=== PATIENT | male | born 1945 | race Caucasian/White ===

== ENCOUNTER 2017-04-02 05:56 | Inpatient (IN) | payer OTHER ==
[2017-03-06 10:09] VITALS: BMI 34.0
--- NOTE | 2017-03-06 10:40 | PAT Medication Instructions ---
Service Date Mar 06, 2017. Current Home Medication List Aspirin (Aspirin Ec), 81 MG PO QAM Glimepiride (Glimepiride), 1 TAB PO QAM Lisinopril (Prinivil), 20 MG PO QAM Metformin Hcl (Glucophage), 500 MG PO BID Naproxen (Aleve), 2 TAB PO UD PRN for PRN Rosuvastatin Calcium (Crestor), 5 MG PO QPM Medication Instructions For Your Scheduled Surgery - Check with surgeon for instructions: Naproxen (Aleve), 2 TAB PO UD PRN for PRN - Hold the following medications 48 hours prior to surgery: Metformin Hcl (Glucophage), 500 MG PO BID - Hold the following medications the morning of surgery: Glimepiride (Glimepiride), 1 TAB PO QAM Lisinopril (Prinivil), 20 MG PO QAM - Take the following medications the morning of surgery with a sip of water: Aspirin (Aspirin Ec), 81 MG PO QAM (okay to continue per surgeon) - Take the following medications as scheduled the night before surgery: Rosuvastatin Calcium (Crestor), 5 MG PO QPM If you have any questions please call us at [phone] or [phone] or [phone]
--- NOTE | 2017-03-06 11:21 | DIAGNOSTIC IMAGING REPORT ---
CHEST 2 VIEWS ROUTINE HISTORY: Preop. COMPARISON: None. FINDINGS: The lungs are clear. The heart is normal in size. No pleural effusions. No pneumothorax. Old, healed left rib fractures. IMPRESSION: No acute process. Electronically signed by: Jhonathan Duran M.D. 03/06/2017 11:19 AM Dictated Date/Time: 03/06/2017 11:18 AM
[2017-03-06 12:00] LABS: BASO % 0.3 %; BASO ABS # 0.02 K/uL (0-0.2); EOS % 1.3 %; EOS ABS # 0.08 K/uL (0-0.5); HEMATOCRIT 45.2 % (42-52); HEMOGLOBIN 15.2 g/dL (14.0-18.0); IG# 0.02 K/uL (0.00-0.02); LYMPH % 26.6 %; LYMPH ABS # 1.61 K/uL (1.2-3.4); MEAN CELL VOLUME 87.9 fL (80-100); MEAN CORPUSCULAR HEMOGLOBIN 29.6 pg (25-34); MEAN CORPUSCULAR HGB CONC 33.6 g/dl (32-36); MEAN PLATELET VOLUME 11.4 fL (7.4-10.4); MONO % 5.6 %; MONO ABS # 0.34 K/uL (0.11-0.59); NEUT % 65.9 %; NEUT ABS # 3.98 K/uL (1.4-6.5); PLATELET COUNT 208 K/uL (130-400); RED CELL DISTRIBUTION WIDTH CV 13.2 % (11.5-14.5); RED CELL DISTRIBUTION WIDTH SD 42.5 fL (36.4-46.3); WHITE BLOOD COUNT 6.05 K/uL (4.8-10.8)
[2017-03-06 12:17] LABS: CALCIUM 8.9 mg/dl (8.5-10.1); CREATININE 1.25 mg/dl (0.60-1.40); POTASSIUM 4.6 mmol/L (3.5-5.1)
[2017-04-02] VITALS (9 sets, daily range): BP systolic 127–168; BP diastolic 69–93; PULSE 88–102; TEMP 36.6–36.8; O2SAT 93–96; Ht 172.7 cm; Wt 101.2 kg
[~2017-04-02] VITALS: Ht 172.7 cm; Wt 101.2 kg
[~2017-04-02 05:56] MED LIST: AMR2 PO; ASPI81TA28 PO; CRS/10 PO; GLC/500 PO; LISI20TA3 PO; NAPR1TAB9 PO
[2017-04-02] MEDS ORDERED: LACTATED RINGER'S 1000ML 1,000 ML IV SCH (06:00)
[2017-04-02] MEDS ORDERED: CEFAZOLIN 2000MG IV PUSH 10 ML IV SCH (06:00)
[2017-04-02] MEDS ORDERED: FENTANYL CITRATE INJ 50 MCG/1 ML 2 ML VIAL ONE ×5 (06:36→10:12)
[2017-04-02] MEDS ORDERED: MIDAZOLAM HCL 1 MG/ML 2ML VIAL ONE (06:36)
[2017-04-02] MEDS ORDERED: BACITRACIN 50000 UNIT VIAL ONE (06:53)
[2017-04-02] MEDS ORDERED: BUPIVACAINE/EPINEPHRINE 0.25% 1:200,000 30 ML VIAL ONE (06:54)
[2017-04-02] MEDS ORDERED: ALBUMIN HUMAN 5% 12.5 GM/250 ML VIAL IV ONE (07:03)
--- NOTE | 2017-04-02 07:40 | History & Physical Bridge Note ---
H&P Re-Evaluation Bridge Note: I have examined the patient, reviewed the History & Physical and in the interval since the performance of the History & Physical I have noted the following changes of clinical significance: No changes noted
--- NOTE | 2017-04-02 07:41 | History and Physical ---
History & Physical Date Apr 02, 2017. Chief Complaint Back and leg pain History of Present Illness The patient is a 71 year old male with complaints of back and leg pain Additional History Hepatic Disease: No Endocrine Disorder: No Kidney Disease: No Hypertension: Yes Heart Disease: No Bleeding Tendencies: No Infectious Diseases: No Allergies Coded Allergies: No Known Allergies (Unverified , 04/02/17) Home Medications Scheduled Aspirin (Aspirin Ec), 81 MG PO QAM Glimepiride (Glimepiride), 1 TAB PO QAM Lisinopril (Prinivil), 20 MG PO QAM Metformin Hcl (Glucophage), 500 MG PO BID Rosuvastatin Calcium (Crestor), 5 MG PO QPM Scheduled PRN Naproxen (Aleve), 2 TAB PO UD PRN for PRN Physical Examination Skin: warm/dry, no rash Eyes: normal inspection, EOMI, sclerae normal ENT: normal ENT inspection, pharynx normal Head: normocephalic, atraumatic Neck: supple, no adenopathy, trachea midline Respiratory/Chest: lungs clear, normal breath sounds, no respiratory distress Cardiovascular: regular rate, rhythm, no edema, no murmur Abdomen / GI: normal bowel sounds, non tender Back: normal inspection Extremities: normal inspection, normal range of motion Neurologic/Psych: no motor/sensory deficits, alert, normal reflexes, oriented x 3 Diagnosis Lumbar spinal stenosis Plan of Treatment L3 to S1 decompression fusion
[2017-04-02] MEDS ORDERED: HYDROmorphone INJ 2 MG/ML SYR/VIAL ONE ×3 (08:15→10:38)
[2017-04-02] MEDS ORDERED: PHENYLEPHRINE 100MCG/ML 5ML SYR ONE ×2 (09:41→10:12)
[2017-04-02] MEDS ORDERED: PROPOFOL IV EMULSION 10 MG/ML 20 ML VIAL IV ONE (10:12)
[2017-04-02] MEDS ORDERED: DEXAMETHASONE SOD INJ 4 MG/ML VIAL ONE (10:12)
[2017-04-02] MEDS ORDERED: EpHEDrine SULFATE 50MG/5ML SYR ONE (10:12)
[2017-04-02] MEDS ORDERED: LIDOCAINE HCL 2% 2 ML VIAL (20MG/ML) ONE (10:12)
[2017-04-02] MEDS ORDERED: FLOSEAL HEMOSTATIC MATRIX 10ML TOP ONE (10:15)
--- NOTE | 2017-04-02 10:30 | DIAGNOSTIC IMAGING REPORT ---
LUMBAR SPINE 2 OR 3 VIEW CLINICAL HISTORY: L3-S1 DECOMPRESSION/FUSION COMPARISON STUDY: No previous studies for comparison. Fluoroscopy time: 24.5 seconds. FINDINGS: 3 fluoroscopic images demonstrate an L4-L5 discectomy with interbody spacer placement. There is a posterior decompression at the L4 and L5 levels. There are bilateral pedicle screws at the L3, L4, L5 and S1 levels. IMPRESSION: Expected findings following L4-L5 discectomy, posterior decompression and L3-S1 bilateral pedicle screw fusion. Electronically signed by: Philip Saunders M.D. 04/02/2017 10:29 AM Dictated Date/Time: 04/02/2017 10:28 AM
[2017-04-02] MEDS ORDERED: GLYCOPYRROLATE INJ 0.2 MG/ML VIAL ONE (10:43)
[2017-04-02] MEDS ORDERED: NEOSTIGMINE METHYLSULFATE 1 MG/ML 10ML VIAL ONE (10:43)
[2017-04-02] MEDS ORDERED: KETOROLAC TROMETHAMINE 30 MG/ML VIAL ONE (10:43)
[2017-04-02] MEDS ORDERED: ESMOLOL HCL 10 MG/ML 10 ML VIAL ONE (10:43)
[2017-04-02] MEDS ORDERED: PHARMACY GLYCEMIC MGMT CONSULT PRN (10:44)
[2017-04-02] MEDS ORDERED: SODIUM CHLORIDE 0.9% 1000ML 1,000 ML IV SCH (10:44)
--- NOTE | 2017-04-02 10:44 | [facility] Operative Report ---
Operative Report Operative Date Apr 02, 2017. Pre-Operative Diagnosis Lumbar spinal stenosis Post-Operative Diagnosis Lumbar spinal stenosis Procedure(s) Performed #1 lumbar decompression medial facetectomy foraminotomies L3 4 L4 5 L5-S1. #2 posterior spinal fusion L3 4 L4 5 L5-S1. #3 placement posterior segmental instrumentation L3 4 L4 5 L5-S1. #4 interbody fusion L4 5. #5 placement peek cage 15 x 26 mm at L4 5. 6 placement locally harvested morcellized autograft and posterior gutters. #7 placement infuse collagen sponge about mask graft and posterior gutters and ostial amp in the interbody space. Surgeon Dr. Gunner Mccann Carding Machine Operator Surgeon(s) None Estimated Blood Loss 575ml Findings Severe spinal stenosis Specimens None per surgeon Description of Procedure Patient was met with preoperatively case discussed all questions addressed. After informed consent obtained she was taken to the operative suite underwent intubation placed in a prone position the Reg table on top Travis frame. All bony prominences were well-padded eyes inspected to ensure no external pressure placed upon them. This point the lumbar spine was prepped and draped in the normal sterile fashion. Sharp dissection with the assistance of Bovie cautery was performed onto an exposing the lamina and transverse processes of L3 L4-L5 and sacral alar bilaterally. From a caudal cephalad fashion a complete laminectomy of L5 L4 and L3 was performed addressing severe lateral recess and foraminal stenosis. Pedicle screws are then placed in L3 L4-L5 and S1 levels bilaterally with assistance of fluoroscopy and the probably size yara placed. Through a transforaminal approach on the right a complete discectomy of L4 5 was performed and plate created to subcortical bleeding bone and a 15 x 26 mm peek cage filled with ostial amp bone graft tapped in position. The rods were then locked and final position bilaterally. Transverse processes of L3 L4- L5 and the sacral alar were burred to subcortical bleeding bone. Infuse collagen sponge mask graft locally harvested morcellized autograft was placed in the posterior gutters. 15 round MIKE drain inserted. Incision was then closed with 1 Vicryl in the fascia 2-0 Vicryl subcutaneously for Monocryl for final closure Steri-Strips sterile dressings placed. Patient we can taken to PACU stable condition. I attest to the content of the Intraoperative Record and any orders documented therein. Any exceptions are noted below.
[2017-04-02] MEDS ORDERED: ONDANSETRON INJ 2 MG/ML 2 ML VIAL IV PRN ×2 (10:45→11:15)
[2017-04-02] MEDS ORDERED: ALUMINUM/MAGNESIUM SUSP 30 ML UDC PO PRN (10:45)
[2017-04-02] MEDS ORDERED: DO NOT ADMINISTER FLU VACCINE PRN (10:45)
[2017-04-02] MEDS ORDERED: MAGNESIUM HYDROXIDE SUSP 30 ML UDC PO PRN (10:45)
[2017-04-02] MEDS ORDERED: FAMOTIDINE 20 MG TAB PO PRN (10:45)
[2017-04-02] MEDS ORDERED: ACETAMINOPHEN IV 100 ML IV PRN (10:45)
[2017-04-02] MEDS ORDERED: LORAZEPAM INJ 0.5 MG in SYRINGE 0 ML IV PRN (10:45)
[2017-04-02] MEDS ORDERED: NALOXONE HCL 0.4 MG/1 ML VIAL/CARP IV PRN ×3 (10:45→11:15)
[2017-04-02] MEDS ORDERED: DO NOT ADMINISTER PNEUMOCOCCAL VACCINE PRN (10:45)
[2017-04-02] MEDS ORDERED: PROMETHAZINE HCL INJ 12.5 MG in SODIUM CHLORIDE 0.9% 50ML 50 ML IV PRN ×2 (10:45→11:15)
[2017-04-02] MEDS ORDERED: SOD PHOSPHATE/SOD BIPHOSPHATE ENEMA 132 ML BTL PR PRN (10:45)
[2017-04-02] MEDS ORDERED: BISACODYL 10 MG SUPP PR PRN (10:45)
[2017-04-02] MEDS ORDERED: ACETAMINOPHEN 500 MG TAB PO PRN (10:45)
[2017-04-02] MEDS ORDERED: METOCLOPRAMIDE HCL INJ 5 MG/ML 2 ML VIAL IV PRN (10:45)
[2017-04-02] MEDS ORDERED: hydrOXYzine HCL 25 MG TAB PO PRN (10:45)
[2017-04-02] MEDS ORDERED: LORAZEPAM 0.5 MG TAB PO PRN (10:45)
[2017-04-02] MEDS ORDERED: HYDROmorphone HCL 0.5MG/ML 50 ML CASSETTE ONE (10:55)
[2017-04-02] MEDS ORDERED: ATROPINE SULFATE 0.1 MG/ML 5ML SYR IV PRN (11:15)
[2017-04-02] MEDS ORDERED: FLUMAZENIL 0.1 MG/1 ML 10 ML VIAL IV PRN (11:15)
[2017-04-02] MEDS ORDERED: EpHEDrine SULFATE INJ 50 MG/ML AMP IV PRN (11:15)
[2017-04-02] MEDS ORDERED: LABETALOL HCL IV 5 MG/ML 20ML IV PRN (11:15)
[2017-04-02 11:34] LABS: HEMATOCRIT 38.1 % (42-52); HEMOGLOBIN 12.9 g/dL (14.0-18.0)
--- NOTE | 2017-04-02 11:42 | Pharmacy Progress Note ---
Glycemic Control Intl Consult Date of Service Apr 02, 2017. Scope Glycemic Pharmacist consulted by Dr Mccann on 04/02/17 for glycemic control and to write orders per [facility] inpatient glycemic control protocol Objective Weight (Kilograms): 101.20 Accuchecks BSG (last 24hrs): Test 04/02/17 06:20 04/02/17 10:59 Bedside Glucose 188 mg/dl (70-99) 201 mg/dl (70-99) Recent Pertinent Medications Outpatient Anti-diabetic Regimen: * Metformin 500 mg PO BIDM * Glimepiride 2 mg PO QAM Risk Factors for Insulin Resistance: * Steroids * Recent Surgery * Diet Assessment & Plan ASSESSMENT: * 71 yo T2 diabetic M admitted s/p lumbar decompression surgery, POD #0 * Unknown degree of outpatient glycemic control - A1c ordered for tomorrow * Pt is maintained on oral antidiabetic agents as an outpatient * Oral agents are not recommended for inpatient use d/t drug interactions, changing PO intake, and difficulty titrating for acute hyper/hypoglycemia. ADA recommends re-initiating outpatient oral agents 1-2 days prior to discharge if/ when appropriate if they were held on admission. * Will hold oral agents for admission and utilize SQ basal bolus insulin regimen which is the recommended regimen for inpatient glycemic control. * Will initiate weight based insulin dosing for insulin rylee patient and titrate based on BSG trends. * In light of high dose dexamethasone 12 mg IV x 1 given intraop, anticipate BSGs to climb * Be aggressive up front and loosen regimen as needed based on BSG trend * Goal BSG postop is <150 mg/dL - current BSG in surgery is 201 mg/dL PLAN FOR INPATIENT GLYCEMIC CONTROL: * Hold outpatient oral diabetes medications * Basal insulin with LANTUS 38 units SQ X 1 immediately post-op * Further doses based on BSG trend * Correctional Insulin with NOVOLOG per scale ACHS + 00,04 checks X 24 hours post op * Goal Range: Low 110 mg/dL - High 140 mg/dL * Correction Factor: 20 mg/dL/unit * Nutritional / Prandial insulin per carb ratio of 1 unit per 6 grams CHO consumed * Please note that the plan above was derived based on current level of insulin resistance and hospital stress. These recommendations are appropriate for inpatient admission only. Plan of care upon discharge will need to be reassessed to avoid potential outpatient hypo/hyperglycemia. Thank you.
[2017-04-02] MEDS ORDERED: METOPROLOL TARTRATE 1 MG/ML VIAL ONE (11:44)
[2017-04-02] MEDS ORDERED: METOPROLOL TARTRATE 1 MG/ML VIAL IV STA (11:44)
[2017-04-02] MEDS ORDERED: GLUCOSE 40% GEL 15 GM TUBE PO PRN (11:45)
[2017-04-02] MEDS ORDERED: GLUCOSE 10 TABS/TUBE PO PRN (11:45)
[2017-04-02] MEDS ORDERED: GLUCAGON FOR INJ 1 MG VIAL SQ PRN (11:45)
[2017-04-02] MEDS ORDERED: DEXTROSE 50% 50 ML SYR IV PRN (11:45)
--- NOTE | 2017-04-02 12:04 | Anesthesiology Progress Note ---
Anesthesia Post Op Note Date & Time Apr 02, 2017 at 12:03 Vital Signs Pain Intensity: 3 Vital Signs Past 12 Hours Date Time Temp Pulse Resp B/P (MAP) Pulse Ox O2 Delivery O2 Flow Rate FiO2 04/02/17 11:50 37.1 79 16 146/74 95 Nasal Cannula 4 04/02/17 11:46 95 150/75 04/02/17 11:40 95 15 155/76 95 Nasal Cannula 4 04/02/17 11:30 91 15 152/77 95 Nasal Cannula 4 04/02/17 11:20 97 12 159/74 97 Nasal Cannula 4 04/02/17 11:10 94 16 156/75 96 Oxymask 10 04/02/17 11:00 87 16 150/76 96 Oxymask 10 04/02/17 10:52 36.5 79 16 152/77 97 Oxymask 10 04/02/17 06:23 36.7 88 20 168/93 96 Room Air Notes Mental Status: alert / awake / arousable, participated in evaluation Pt Amnestic to Procedure: Yes Nausea / Vomiting: adequately controlled Pain: adequately controlled Airway Patency, RR, SpO2: stable & adequate BP & HR: stable & adequate Hydration State: stable & adequate Anesthetic Complications: no major complications apparent
[2017-04-02] MEDS ORDERED: LANTUS PER UNIT CHARGE SQ ONE ×2 (12:45→21:15)
[2017-04-02] MEDS: INSULIN ASPART 100 UNITS/ML 3 ML PEN SC SCH ×3 (13:25→21:13)
[2017-04-02] MEDS ORDERED: ROCURONIUM BROMIDE 10 MG/ML 5 ML VIAL IV ONE (13:28)
[2017-04-02] MEDS: HYDROmorphone HCL 0.5MG/ML 50 ML CASSETTE IV PRN ×2 (15:01→22:57)
[2017-04-02] MEDS: SODIUM CHLORIDE 0.9% 1000ML 1,000 ML IV SCH ×2 (15:29→21:43)
[2017-04-02] MEDS: CEFAZOLIN IV 2,000 MG in SYRINGE 0 ML IV SCH (15:32)
[2017-04-02] MEDS: DOCUSATE SODIUM/SENNA 50/8.6MG TAB PO SCH (21:03)
[2017-04-02] MEDS: ROSUVASTATIN CALCIUM 5 MG TAB PO SCH (21:03)
[2017-04-02] MEDS ORDERED: NURSING VERBAL MED ORDER ONE (22:00)
[2017-04-03] VITALS (8 sets, daily range): BP systolic 109–147; BP diastolic 57–72; PULSE 78–86; TEMP 36.6–37.5; O2SAT 93–96
[2017-04-03] MEDS: INSULIN ASPART 100 UNITS/ML 3 ML PEN SC SCH ×6 (00:10→21:35)
[2017-04-03] MEDS: CEFAZOLIN IV 2,000 MG in SYRINGE 0 ML IV SCH (00:11)
[2017-04-03] MEDS: SODIUM CHLORIDE 0.9% 1000ML 1,000 ML IV SCH (04:15)
[2017-04-03] MEDS ORDERED: DC PCA SCH (06:00)
[2017-04-03] MEDS ORDERED: HYDROmorphone INJ 1 MG/ML SYR IV PRN (06:01)
[2017-04-03] MEDS ORDERED: NURSING VERBAL MED ORDER ONE (06:15)
[2017-04-03 06:31] LABS: BASO % 0.2 %; BASO ABS # 0.02 K/uL (0-0.2); HEMATOCRIT 33.3 % (42-52); IG# 0.03 K/uL (0.00-0.02); LYMPH % 13.5 %; LYMPH ABS # 1.47 K/uL (1.2-3.4); MEAN CELL VOLUME 88.1 fL (80-100); MEAN CORPUSCULAR HEMOGLOBIN 29.1 pg (25-34); MEAN PLATELET VOLUME 10.4 fL (7.4-10.4); MONO % 8.3 %; MONO ABS # 0.91 K/uL (0.11-0.59); NEUT % 77.7 %; NEUT ABS # 8.47 K/uL (1.4-6.5); PLATELET COUNT 170 K/uL (130-400)
[2017-04-03] MEDS: OXYCODONE HCL IR 5 MG TAB (IMMEDIATE RELEASE) PO PRN ×2 (06:38→13:15)
[2017-04-03 07:02] LABS: CALCIUM 7.6 mg/dl (8.5-10.1); CREATININE 1.09 mg/dl (0.60-1.40); POTASSIUM 4.1 mmol/L (3.5-5.1)
--- NOTE | 2017-04-03 08:20 | Anesthesiology Progress Note ---
Anesthesia Post Op Note Date & Time Apr 03, 2017 at 08:19 Vital Signs Pain Intensity: 4.0 Vital Signs Past 12 Hours Date Time Temp Pulse Resp B/P (MAP) Pulse Ox O2 Delivery O2 Flow Rate FiO2 04/03/17 07:00 36.7 86 18 136/69 (91) 93 Room Air 04/03/17 04:19 36.6 81 16 147/66 (93) 94 Room Air 04/03/17 01:29 96 Room Air 04/02/17 23:30 36.7 95 16 127/69 (88) 94 Room Air Notes Mental Status: alert / awake / arousable, participated in evaluation Pt Amnestic to Procedure: Yes Nausea / Vomiting: adequately controlled Pain: adequately controlled Airway Patency, RR, SpO2: stable & adequate BP & HR: stable & adequate Hydration State: stable & adequate Anesthetic Complications: no major complications apparent
[2017-04-03] MEDS: ASPIRIN 81 MG ECTAB PO SCH (08:48)
[2017-04-03] MEDS: LISINOPRIL 20 MG TAB PO SCH (08:48)
[2017-04-03] MEDS ORDERED: GLIMEPIRIDE 2 MG TAB PO SCH (09:00)
[2017-04-03] MEDS ORDERED: LANTUS PER UNIT CHARGE SQ SCH (09:00)
--- NOTE | 2017-04-03 09:00 | Pharmacy Progress Note ---
Pharmacy Glycemic Short Note 2 Date of Service Apr 03, 2017. OUTPATIENT ANTIDIABETIC REGIMEN: * Metformin 500 mg PO BIDM * Glimepiride 2 mg PO QAM ASSESSMENT: * 71 yo T2 diabetic M admitted s/p lumbar decompression surgery, POD #1 * A1c 6.9% indicative of excellent glycemic control * Goal was to maintain BSG <150 mg/dL * BSGs have trended 139-229 mg/dL over the past 24 hours * Immediately post-op pt was elevated but has trended down quickly to within goal range * Pt required 2 doses of basal insulin yesterday totally 50 units * Moving forward - start to loosen insulin over the next 24-48 hours, add back orals and prepare for discharge PLAN FOR INPATIENT GLYCEMIC CONTROL: * Restart metformin 500 mg PO BIDM tonight * Restart glimepiride 2 mg PO QAM * Basal insulin * Lantus 50 units total given yesterday * Today will give 10 units this AM X 1 * Hopefully will not have to re-dose * Correctional Insulin with NOVOLOG per scale ACHS * Goal Range: Low 110 mg/dL - High 140 mg/dL * Correction Factor: 20 mg/dL/unit * Nutritional / Prandial insulin per carb ratio of 1 unit per 6 grams CHO consumed PLAN FOR DISCHARGE: * Resume orals * Please note that the plan above was derived based on current level of insulin resistance and hospital stress. These recommendations are appropriate for inpatient admission only. Plan of care upon discharge will need to be reassessed to avoid potential outpatient hypo/hyperglycemia. Thank you.
[2017-04-03 09:48] LABS: HEMOGLOBIN A1C 6.9 % (4.5-5.6)
--- NOTE | 2017-04-03 09:51 | Clinical Documentation Query ---
QUERY 1 OF [address] JOHNSTON, In your clinical opinion is this patient being managed for: ( ) Acute blood loss anemia ( ) Not Agree ( ) Other explanation of clinical findings (Please Explain) ( ) Unable to determine (Please Define) ( ) Need to Discuss The medical record reflects the following clinical findings, treatment, and risk factors. Clinical Indicators: 71 yo male presenting with lumbar spinal stenosis. Baseline Hgb 15.2/Hct 45.2 dropping to Hgb 11/Hct 33.3. EBL of 575 cc. Treatment: IV fluids, monitor CBC Risk Factors: expected surgical blood loss QUERY 2 OF 2 In your clinical opinion is this patient being managed for: ( ) Type 2 diabetes mellitus ( ) Not Agree ( ) Other explanation of clinical findings (Please Explain) ( ) Unable to determine (Please Define) ( ) Need to Discuss The medical record reflects the following clinical findings, treatment, and risk factors. Clinical Indicators: Pt noted to be chronically treated with glimepiride and metformin. POC blood glucose readings 119-229. Treatment: glimepiride, metformin, POC glucose checks Risk Factors: age, HTN Please clarify and document your clinical opinion in the progress notes and discharge summary. Terms such as "probable", "suspected", "likely", "questionable", "possible", or "still to be ruled out" are acceptable. IF IN AGREEMENT, YOU MUST DOCUMENT ABOVE DIAGNOSTIC STATEMENT IN DAILY PROGRESS NOTES AND DISCHARGE SUMMARY. This document is not part of the patient's record. Thank You, Kirti Li, RN [phone]
[2017-04-03] MEDS ORDERED: RXC5 PO (12:51)
--- NOTE | 2017-04-03 12:52 | Discharge Instructions ---
Discharge Instructions Date of Service Apr 03, 2017. Admission Reason for Admission: Spinal Stenosis Discharge Discharge Diagnosis / Problem: lumbar stenosis Discharge Goals Goal(s): Improve function Activity Recommendations Activity Limitations: per Instructions/Follow-up section . Instructions / Follow-Up Instructions / Follow-Up ACTIVITY RECOMMENDATIONS: SELF CARE INSTRUCTIONS AFTER THORACIC/LUMBAR FUSIONS 1. You may walk to your tolerance. It is good exercise for your legs and back. Expect some back and intermittent leg aches and pains. 2. You may perform "counter-top" level activities (make a sandwich, jamie with a project, etc.). 3. No bending or lifting of more than 10 pounds or back twisting of any nature (roll like a log when turning in bed). 4. You may ride in a car for 20-30 minutes at a time. No driving until after your first visit with your doctor. 5. Frequent changes of position and restricting sitting to 30 minutes at a time will help limit the amount of back spasms and stiffness you may experience. 6. You may discontinue the use of ambulatory aids (cane, crutches, etc.) once your strength and confidence allow. 7. You may arson investigator the shower and let water strike your incision when you arrive home at least once daily. Do not take a tub bath, sit in a hot tub or go into a swimming pool until after your first recheck in the office. SPECIAL CARE INSTRUCTIONS: VERY IMPORTANT TO READ AND REVIEW A. Your surgical incision has been closed with a cosmetic suture under the skin that will dissolve in about 6 weeks. In 14 days, you can use a pair of clean scissors and cut the suture that is left outside of the skin at the ends of your incision. 1. The small skin tapes can be removed 7 days after surgery if they have not fallen off by that point. 2. You may keep the wound open to air as much as possible to promote healing after post-op day number 5 unless told otherwise by your doctor. 3. If you think the wound looks like it is becoming infected (redness or worsening drainage) and/or you are experiencing fever, chill or worsening back pain and muscle spasms, contact the office so that we may evaluate you as soon as possible. B. Complications are uncommon, but please contact us if you have any signs or symptoms of: 1. wound infection (fever higher than 102.5 degrees F, redness, separation of wound, drainage, or increasing pain from the incision) 2. blood clots in legs (pain, swelling, redness and warmth in legs) 3. urinary tract infection (fever higher than 102.5 degrees F, burning upon urination or increased frequency of urination) 4. nerve problems (inability to walk on your toes or heels, numbness, loss of bowel or bladder control) 5. any other symptoms that concern you C. Please call the office at if you have any concerns or questions about your operation or recovery. D. No smoking! Smoking drastically decreases the chance of a solid fusion. E. Do not take any anti-inflammatory medications (Indocin, Advil, Motrin, Aspirin, Naprosyn, etc.) as these may inhibit the chance of a solid fusion. Tylenol is okay to take for pain. MANAGING PAIN AFTER SPINAL SURGERY 1. Narcotic medication is intended for short-term use and will be provided for surgical pain. Surgical pain usually lasts for a period of 4-6 weeks. Narcotic medication includes Percocet, Vicodin, Darvocet, Tylenol #3 or Lortab. 2. Longer-term pain is more appropriately treated with non-narcotic medication such as Tylenol ES. 3. Muscle spasm is not appropriately treated with narcotics. Muscle relaxers such as Soma, Flexeril or Skelaxin can be used along with Tylenol ES. 4. Remember that we all live with some "aches and pains". This is not unusual or uncommon after an injury or as we get older. a. Back pain is expected and may include muscle spasms for 4 to 6 weeks after surgery. The pain should gradually improve. If the pain worsens for no apparent reason, please contact the office. b. Intermittent leg pain may also be experienced and should not be concerned about unless it worsens for no apparent reason. If so, please contact the office. 5. We will provide appropriate medication within the normal guidelines of their prescribed use. We will also be very cautious and aware of potential abuse and extended duration of patients' medication needs. a. Pain medications are for your comfort and to assist with sleep and rest so that the tissue can heal. They are not provided in order to return to normal activity and should not be used through the day. To do so or worsening pain at night can result from ongoing tissue damage and development of tolerance to the prescribed medicine. 6. Please allow 2-3 days to process refills. Prescriptions will not be mailed but must be picked up at the office. FOLLOW UP VISIT: Keep your scheduled follow-up appointment. Any questions, please call the office at . Current Hospital Diet Patient's current hospital diet: Diabetes Type 2 Diet Discharge Diet Recommended Diet: Regular Diet Procedures Procedures Performed: L3-S1 Decompression, Posterior Spinal Fusion, Instrumentation, Interbody Fusion With Application of Interbody Cage at L4-L5, Bone Morphogenetic Protein, Osteoamp Pending Studies Studies pending at discharge: no Laboratory Results Hemoglobin A1c Test 04/03/17 06:10 Range/Units Estimated Average Glucose 151 mg/dl Hemoglobin A1c 6.9 H 4.5-5.6 % Medical Emergencies . Who to Call and When: Medical Emergencies: If at any time you feel your situation is an emergency, please call 911 immediately. . Non-Emergent Contact Non-Emergency issues call your: Primary Care Provider . "Provider Documentation" section prepared by Gunner Mccann. . VTE Core Measure Inpt VTE Proph given/why not?: Darby Gallardo, SCD's
--- NOTE | 2017-04-03 13:39 | Progress Note ---
Progress Note Date of Service Apr 03, 2017. Progress Note Patient is postop day 1. Back pain is controlled. Leg pain improved. Vital signs stable. Strength intact. Assessment status post lumbar decompression fusion. This time will continue physical therapy anticipate home end of the week.
[2017-04-03] MEDS ORDERED: KETOROLAC TROMETHAMINE 15 MG/ML VIAL IV. PRN (13:45)
[2017-04-03] MEDS: METFORMIN HCL 500 MG TAB PO SCH (18:11)
[2017-04-03] MEDS: ROSUVASTATIN CALCIUM 5 MG TAB PO SCH (21:20)
[2017-04-03] MEDS: DOCUSATE SODIUM/SENNA 50/8.6MG TAB PO SCH (21:20)
[2017-04-03] MEDS ORDERED: LANTUS PER UNIT CHARGE SQ ONE (21:45)
[2017-04-04] MEDS: POLYETHYLENE (MIRALAX) 17 GM PACK PO SCH ×3 (05:37→18:30)
[2017-04-04 07:06] VITALS: BP 177/83; PULSE 96; TEMP 36.6; O2SAT 95
[2017-04-04] MEDS: METFORMIN HCL 500 MG TAB PO SCH (08:30)
[2017-04-04] MEDS: LISINOPRIL 20 MG TAB PO SCH (08:38)
[2017-04-04] MEDS: ASPIRIN 81 MG ECTAB PO SCH (08:38)
[2017-04-04] MEDS: INSULIN ASPART 100 UNITS/ML 3 ML PEN SC SCH ×4 (08:42→20:33)
--- NOTE | 2017-04-04 08:47 | Progress Note ---
Progress Note Date of Service Apr 04, 2017. Progress Note Back pain is controlled leg pain improved. He is complaining some abdominal distention and discomfort. On exam his of the abdomen is distended still soft. His excellent strength testing her extremity. Assessment status post lumbar decompression fusion. Plan this time we will make him nothing by mouth today increase his IV fluids and encourage ambulation. If he begins struggling with nausea or vomiting we may consider an NG tube and obtain an abdominal x-ray series.
[2017-04-04] MEDS ORDERED: GLIMEPIRIDE 2 MG TAB PO SCH (09:00)
--- NOTE | 2017-04-04 09:14 | Pharmacy Progress Note ---
Pharmacy Glycemic Short Note 2 Date of Service Apr 04, 2017. OUTPATIENT ANTIDIABETIC REGIMEN: * Metformin 500 mg PO BIDM * Glimepiride 2 mg PO QAM ASSESSMENT: * 71 yo T2 diabetic M admitted s/p lumbar decompression surgery, POD #2 * A1c 6.9% indicative of excellent glycemic control * Goal was to maintain BSG <150 mg/dL * BSGs have trended 141-189 mg/dL over the past 24 hours * Pt received 20 units of Lantus yesterday + 27 units fo Novolog * Fasting BSG = 276 mg/dL * Unfortunately, BSGs have not trended the way I was expecting * Pt made NPO this AM due to abdominal distention/discomfort * This BSG could be in response to added stress * Plan to continue wt based basal/bolus regimen and not be overtly aggressive given status change PLAN FOR INPATIENT GLYCEMIC CONTROL: * Discontinue orals that were restarted * Basal insulin * Lantus 20 units X 1 this AM * Continue to re-dose based on BSG trend * Correctional Insulin with NOVOLOG per scale ACHS * Goal Range: Low 110 mg/dL - High 140 mg/dL * Correction Factor: 20 mg/dL/unit * Nutritional / Prandial insulin per carb ratio of 1 unit per 6 grams CHO consumed PLAN FOR DISCHARGE: * Resume orals * Please note that the plan above was derived based on current level of insulin resistance and hospital stress. These recommendations are appropriate for inpatient admission only. Plan of care upon discharge will need to be reassessed to avoid potential outpatient hypo/hyperglycemia. Thank you.
[2017-04-04] MEDS ORDERED: LANTUS PER UNIT CHARGE SQ SCH (09:30)
[2017-04-04] MEDS: LACTATED RINGER'S 1000ML 1,000 ML IV SCH ×3 (09:36→19:39)
[2017-04-04] MEDS ORDERED: NURSING VERBAL MED ORDER ONE ×2 (09:45→19:00)
[2017-04-04 10:07] VITALS: BP_SYST 168; BP_SYST 188; BP_DIAS 80; BP_DIAS 94
[2017-04-04] MEDS ORDERED: INSULIN ASPART 100 UNITS/ML 3 ML PEN SC SCH (12:00)
[2017-04-04 12:36] VITALS: BP 134/75
[2017-04-04 15:44] VITALS: BP 150/76; PULSE 83; TEMP 37; O2SAT 96
[2017-04-04] MEDS ORDERED: CHLORPROMAZINE HCL 25 MG TAB PO PRN (19:15)
[2017-04-04] MEDS: ROSUVASTATIN CALCIUM 5 MG TAB PO SCH (20:31)
[2017-04-04] MEDS: DOCUSATE SODIUM/SENNA 50/8.6MG TAB PO SCH (20:31)
[2017-04-05] MEDS: POLYETHYLENE (MIRALAX) 17 GM PACK PO SCH
[2017-04-05 00:05] VITALS: BP 162/82; PULSE 101; TEMP 37.3; O2SAT 94
[2017-04-05] MEDS: LACTATED RINGER'S 1000ML 1,000 ML IV SCH ×2 (00:09→04:59)
[2017-04-05] MEDS: INSULIN ASPART 100 UNITS/ML 3 ML PEN SC SCH ×6 (00:14→21:02)
[2017-04-05] MEDS ORDERED: NURSING DECISION MEDICATION ORDER SCH (02:00)
[2017-04-05 03:16] VITALS: BP 153/80
[2017-04-05 07:20] VITALS: BP 149/81; PULSE 85; TEMP 36.7; O2SAT 95
--- NOTE | 2017-04-05 08:28 | Pharmacy Progress Note ---
Glycemic Control Progress Note Date of Service Apr 05, 2017. Scope Glycemic Pharmacist consulted for glycemic control to write orders per formerly [facility] inpatient glycemic control protocol. Objective Accuchecks BSG (last 24hrs): Test 04/04/17 11:49 04/04/17 16:06 04/04/17 20:09 04/05/17 00:06 Bedside Glucose 263 mg/dl (70-99) 143 mg/dl (70-99) 194 mg/dl (70-99) 176 mg/dl (70-99) Test 04/05/17 04:03 Bedside Glucose 158 mg/dl (70-99) HbA1c: Test 04/03/17 06:10 Hemoglobin A1c 6.9 % (4.5-5.6) H Recent Pertinent Medications The patient is currently receiving: * Basal insulin: Lantus 20 units SQ x 1 yesterday AM * Correctional Insulin: Novolog Correction per scale Q 4 hours Goal Range: Low 110 mg/dL - High 140 mg/dL Correction Factor: 12 mg/dL/unit * Prandial insulin: Per carb ratio of 1 unit per 5 grams CHO consumed * Oral Agents: None currently Outpatient Anti-Diabetic Meds Metformin 500mg PO BID Glimepiride 2mg PO Q AM A1c = 6.9% 04/03/17 Assessment & Plan ASSESSMENT: 04/05/17 * Patient had been NPO all day yesterday secondary to abdominal distention and discomfort * BSGs ranged 143-263 over the last 24 hours with little to no PO intake. He received 20 units of Lantus and 26 units of Novolog correction over the last 24 hours. Oral agents have been on hold. * Patient is to begin a T2DM full liquid diet this AM * Will increase basal insulin dose as he clearly was requiring more than what was given yesterday * CF had been adjusted to allow for higher doses when used yesterday as patient appeared to be basal deficient. Will scale back CF dose this AM now that a diet is ordered and a higher basal dose is on board. * If diet is tolerated today, may consider restarting out-pt oral hypoglycemics soon PLAN FOR INPATIENT GLYCEMIC CONTROL: * Lantus 25 units SQ x 1 this AM - he may ultimately require more than this, but will keep the dose lower as we may be able to resume PO hypoglycemics ( metformin) soon. * Changing correction factor to 18 mg/dl/unit * Continuing 1 unit per 5 grams CHO consumed * Continuing goal range of Low 110 mg/dL - High 140 mg/dL * Add BSG check at 0200 tonight RECOMMENDATIONS FOR DISCHARGE: * Resume outpt regimen of metformin and glimepiride * Please note that the plan above was derived based on current level of insulin resistance and hospital stress. These recommendations are appropriate for inpatient admission only. Plan of care upon discharge will need to be reassessed to avoid potential outpatient hypo/hyperglycemia. Thank you.
[2017-04-05] MEDS: LISINOPRIL 20 MG TAB PO SCH (08:36)
[2017-04-05] MEDS: ASPIRIN 81 MG ECTAB PO SCH (08:36)
[2017-04-05] MEDS ORDERED: LANTUS PER UNIT CHARGE SQ ONE (09:00)
--- NOTE | 2017-04-05 14:26 | Progress Note ---
Progress Note Date of Service Apr 05, 2017. Progress Note Patient's abdominal pain is steadily improving. He had some bowel movements early this a.m. He is tolerating liquid diet. Otherwise he is in bleeding well. He notes marked improvement of his leg pain. Assessment status post lumbar decompression fusion. Planned this time we will maintain a clear liquid diet today and reassess him tomorrow most likely increase his diet and consider discharge home Saturday or Saturday.
[2017-04-05 15:35] VITALS: BP 135/75; PULSE 85; TEMP 36.9; O2SAT 95
[2017-04-05] MEDS: METFORMIN HCL 500 MG TAB PO SCH (18:11)
[2017-04-05] MEDS: DOCUSATE SODIUM/SENNA 50/8.6MG TAB PO SCH (20:58)
[2017-04-05] MEDS: ROSUVASTATIN CALCIUM 5 MG TAB PO SCH (21:00)
[2017-04-05 23:50] VITALS: BP 136/78; PULSE 79; TEMP 37; O2SAT 93
[2017-04-06] MEDS ORDERED: INSULIN ASPART 100 UNITS/ML 3 ML PEN SC ONE (02:00)
[2017-04-06] MEDS: OXYCODONE HCL IR 5 MG TAB (IMMEDIATE RELEASE) PO PRN ×2 (02:17→09:02)
[2017-04-06 07:31] VITALS: BP 134/74; PULSE 78; TEMP 36.6; O2SAT 94
[2017-04-06] MEDS: METFORMIN HCL 500 MG TAB PO SCH (08:45)
[2017-04-06] MEDS: INSULIN ASPART 100 UNITS/ML 3 ML PEN SC SCH ×2 (08:58→13:21)
[2017-04-06] MEDS ORDERED: LANTUS PER UNIT CHARGE SQ ONE (09:00)
[2017-04-06] MEDS: LISINOPRIL 20 MG TAB PO SCH (09:48)
[2017-04-06] MEDS: ASPIRIN 81 MG ECTAB PO SCH (09:49)
--- NOTE | 2017-04-06 10:22 | Discharge Summary ---
Orthopedic Discharge Summary Admission Date/Reason Apr 02, 2017 at 10:48 Spinal Stenosis. Discharge Date/Disposition Apr 06, 2017 Home Diagnosis Principal Diagnosis: Lumbar spinal stenosis Admission Physical Exam As per Admitting History & Physical. Hospital Course Patient underwent lumbar decompression and fusion tolerated this well as taken to the orthopedic floor postoperative. Postoperatively he was up and ambulatory without difficulty. He was struggling with evidence of a postop ileus. This resolved nicely. He was actually discharged home. Discharge orders and instructions on the chart for further review. Discharge Instructions Please refer to the electronic Patient Visit Report (Discharge Instructions) for additional information.
[2017-04-06 11:23] VITALS: BP 134/74; PULSE 78; TEMP 36.6; O2SAT 94
== END 2017-04-06 14:10 | disposition home or self-care (01) | DRG 455 ==
LOC: C.ACU 05:56 → C.3E 10:48 → ENRESERV 11:30
PROVIDERS: ADMIT Orthopaedic Surgery Orthopaedic Surgery of the Spine; ATTEND Orthopaedic Surgery Orthopaedic Surgery of the Spine
PROC: 0SG00AJ Fusion of Lumbar Vertebral Joint with Interbody Fusion Device, Posterior Approach, Anterior Column, Open Approach (ICD-10-PCS; principal; 2017-04-02 07:30)
PROC: 0SG1071 Fusion of 2 or more Lumbar Vertebral Joints with Autologous Tissue Substitute, Posterior Approach, Posterior Column, Open Approach (ICD-10-PCS; principal; 2017-04-02 07:30)
PROC: 0SG3071 Fusion of Lumbosacral Joint with Autologous Tissue Substitute, Posterior Approach, Posterior Column, Open Approach (ICD-10-PCS; principal; 2017-04-02 07:30)
DX: M48.061 Spinal stenosis, lumbar region without neurogenic claudication (principal); I10 Essential (primary) hypertension; E11.9 Type 2 diabetes mellitus without complications; Z79.899 Other long term (current) drug therapy; Z79.82 Long term (current) use of aspirin; Z79.84 Long term (current) use of oral hypoglycemic drugs